=== PATIENT | female | born 1985 | race Caucasian/White ===

== ENCOUNTER 2017-06-16 14:58 | Emergency (ER) | payer OTHER ==
[2017-06-16 17:37] LABS: Bicarbonate 29 mEq/L (21-31); Glucose Level 108 mg/dL (65-120); Potassium 3.8 mEq/L (3.6-5.0); Sodium Level 141 mEq/L (135-145)
[2017-06-16 17:40] LABS: Absolute Lymphocytes (CBC) 3.3 K/uL (0.7-4.9); Absolute Monocytes 0.3 K/uL (0.1-1.3); Absolute Neutrophil 3.3 K/uL (1.8-8.0); Basophils % 0.7 % (0-1.3); Eosinophils % 5.5 % (0-4.4); Hematocrit 40.5 % (36.0-45.0); Lymphocytes % 44.4 % (15.3-44.8); MCH 28.4 pg (27.0-35.0); MCV 85.7 fL (80-100); MPV 9.1 fL (7.6-11.3); Monocytes % 4.7 % (3.3-12.3); RBC Red Blood Cell Count 4.72 M/uL (3.86-4.86)
[2017-06-16 17:43] LABS: ALT/SGPT 19 IU/L (10-60); AST/SGOT 19 IU/L (10-42); Albumin 4.4 g/dL (3.2-5.5); Alkaline Phosphatase 39 IU/L (42-121); BUN Blood Urea Nitrogen 13 mg/dL (6-20); Bilirubin Direct 0.1 mg/dL (0-0.2); Bilirubin Total 0.4 mg/dL (0.3-1.2); Creatine Phosphokinase 44 IU/L (22-269); Protein, Total 7.6 g/dL (6.0-8.3)
[2017-06-16 17:46] LABS: CKMB Creatine Kinase MB 0.5 ng/ml (0.3-4.0)
--- NOTE | 2017-06-16 17:55 | EKG ---
Test Date: 2017-06-16 Test Time: 15:10:50 Auto Mechanic: TC MEASUREMENT RESULTS: Intervals: Rate: 86 MD: 116 QRSD: 80 QT: 340 QTc: 406 Byron: P: 76 MD: 116 QRS: 70 T: 40 INTERPRETIVE STATEMENTS: Normal sinus rhythm Normal ECG No previous ECG available for comparison Electronically Signed On 06-16-17 17:54:30 CDT by Galdino Jackson
[2017-06-16 17:58] LABS: T3 Free 3.89 pg/ml (2.84-4.24)
--- NOTE | 2017-06-16 19:31 | ER ---
Nurse's Notes [facility] Name: Deya Lee Age: 31 yrs Sex: Female : 1985 Arrival Date: 06/16/2017 Time: 15:02 Bed 16 Private MD: Diagnosis: Palpitations Presentation: 06/16 15:07 Presenting complaint: Patient states: i felt really dizzy around 2:30pm, my heart went hj up and im running out of breath; denies chest pain; reports chest tightness;. Transition of care: patient was not received from another setting of care. Onset of symptoms was June 16, 2017. Initial Sepsis Screen: Does the patient meet any 2 criteria? No. Patient's initial sepsis screen is negative. Does the patient have a suspected source of infection? No. Patient's initial sepsis screen is negative. Care prior to arrival: None. 15:07 Method Of Arrival: Ambulatory 15:07 Acuity: EDWARD 3 hj Triage Assessment: 15:09 General: Appears in no apparent distress. uncomfortable, Behavior is calm, cooperative, hj appropriate for age. Pain: Denies pain. 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 - Social history:: Smoking status: Patient/guardian denies using tobacco. Screenin:55 Abuse screen: Denies threats or abuse. Nutritional screening: No deficits noted. em Tuberculosis screening: No symptoms or risk factors identified. Fall Risk None identified. Assessment: 17:04 General: Appears in no apparent distress. comfortable, Behavior is calm, cooperative. em General: Reports 2 episodes of palpitations that lasted 30 minutes each, reports dizziness, denies N/V, symptoms have resolved. Pain: Denies pain. Neuro: Level of Consciousness is awake, alert, obeys commands, Oriented to person, place, time, situation, Gait is steady. Cardiovascular: Capillary refill < 3 seconds Patient's skin is warm and dry. Respiratory: Airway is patent Respiratory effort is even, unlabored, Respiratory pattern is regular, symmetrical, Breath sounds are clear bilaterally. GI: Abdomen is flat. : No signs and/or symptoms were reported regarding the genitourinary system. EENT: No signs and/or symptoms were reported regarding the EENT system. Derm: Skin is intact, Skin is pink, warm \T\ dry. Musculoskeletal: Range of motion: intact in all extremities. 17:15 Reassessment: Patient appears in no apparent distress at this time. I agree with the iw assessment above by Toby Matamoros LVN. 18:15 Reassessment: Patient appears in no apparent distress at this time. Patient and/or em family updated on plan of care and expected duration. Pain level reassessed. Patient is alert, oriented x 3, equal unlabored respirations, skin warm/dry/pink. 19:52 Reassessment: Patient appears in no apparent distress at this time. Patient and/or bs1 family updated on plan of care and expected duration. Pain level reassessed. Patient is alert, oriented x 3, equal unlabored respirations, skin warm/dry/pink. Patient states symptoms have improved. Vital Signs: 15:10 BP 118 / 81; Pulse 88; Resp 18; Temp 98.1(TE); Pulse Ox 99% on R/A; Weight 45.36 kg; hj Height 5 ft. 3 in. (160.02 cm); Pain 0/10; 17:00 BP 138 / 87; Pulse 86; Resp 16; Pulse Ox 100% on R/A; Pain 0/10; em 18:00 BP 117 / 80; Pulse 73; Resp 18; Pulse Ox 100% on R/A; em 18:44 BP 115 / 74; Pulse 69; Resp 18; Pulse Ox 99% on R/A; Pain 0/10; em 19:21 BP 114 / 69; Pulse 69; Resp 16; Pulse Ox 99% on R/A; bs1 19:53 BP 117 / 80; Pulse 69; Resp 16; Temp 97.9(O); Pulse Ox 99% on R/A; Pain 0/10; bs1 15:10 Body Mass Index 17.71 (45.36 kg, 160.02 cm) ED Course: 15:02 Patient arrived in ED. mr 15:09 Triage completed. 15:10 Arm band placed on left wrist. 15:27 EKG done, by residential service technician. reviewed by Alphonso Medina MD. tc 16:38 Roverto Mendoza PA is PHCP. cp 16:38 Obinna Butts MD is Attending Physician. cp 16:46 Toby Matamoros LVN is Primary Nurse. em 16:55 Urine collected: clean catch specimen, clear. em 17:20 No provider procedures requiring assistance completed. Initial lab(s) drawn, by me, em sent to lab. Inserted saline lock: 20 gauge in right antecubital area, using aseptic technique. Blood collected. 17:34 Patient has correct armband on for positive identification. Placed in gown. Bed in low em position. Call light in reach. Side rails up X 1. 18:25 X-ray completed. Portable x-ray completed in exam room. Patient tolerated procedure kc2 well. 19:07 PHCP role handed off by Roverto Mendoza PA jr8 19:07 Mikhail Vazquez PA is PHCP. jr8 19:26 XRAY Chest (1 view) In Process Unspecified. EDCT 19:31 Galdino Jackson MD is Referral Physician. jr8 19:53 IV discontinued, bleeding controlled, No redness/swelling at site. Pressure dressing bs1 applied. Administered Medications: No medications were administered Outcome: 19:31 Discharge ordered by . jr8 19:52 Discharged to home ambulatory. bs1 19:52 Condition: stable 19:52 Discharge instructions given to patient, Instructed on discharge instructions, follow up and referral plans. Demonstrated understanding of instructions, follow-up care. 19:53 Patient left the ED. bs1 Signatures: Dispatcher [employer] EDCT Trena Morocho mr Toby Matamoros LVN CLINICAL TEAM LEAD em Daly Dinero RN RN Mikhail Vazquez PA PA jr8 Bryanna Carlos, deputy attorney general EKG Ttc Sharif Angelo RN RN hj Page, Corey, PA PA cp Carr, Kelsie 2 Marielle Gutierrez, RN RN bs1 Corrections: (The following items were deleted from the chart) 15:13 15:07 Presenting complaint: Patient states: i felt really busy around 2:30pm, my heart hj went up and im running out of breath; denies chest pain; reports chest tightness; hj 15:13 15:10 45.36 kg; Height 5 ft. 3 in.; BMI: 17.7; Pain 0/10; hj hj 15:13 15:10 Pulse 88bpm; Resp 18bpm; Pulse Ox 99% RA; Temp 98.1F Temporal; 45.36 kg; Height 5 hj ft. 3 in.; BMI: 17.7; Pain 0/10; hj
--- NOTE | 2017-06-16 19:32 | EDPHYS ---
Physician Documentation [facility] Name: Deya Lee Age: 31 yrs Sex: Female : 1985 Arrival Date: 06/16/2017 Time: 15:02 Bed 16 Private MD: ED Physician Obinna Butts HPI: 06/16 16:59 This 31 yrs old Female presents to ER via Ambulatory with complaints of cp Palpitations. 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 - Social history:: Smoking status: Patient/guardian denies using tobacco. ROS: 17:05 Constitutional: Negative for body aches, chills, fever, poor PO intake. cp 17:05 Eyes: Negative for injury, pain, redness, and discharge. cp 17:05 ENT: Negative for drainage from ear(s), ear pain, sore throat, difficulty swallowing, cp difficulty handling secretions. 17:05 Cardiovascular: Positive for palpitations, Negative for chest pain, edema. 17:05 Respiratory: Positive for shortness of breath, Negative for cough, wheezing. 17:05 Abdomen/GI: Negative for abdominal pain, nausea, vomiting, and diarrhea, black/tarry stool. 17:05 Back: Negative for pain at rest, pain with movement, radiated pain. 17:05 : Negative for urinary symptoms, vaginal bleeding, vaginal discharge. 17:05 Skin: Negative for cellulitis, rash. 17:05 Neuro: Positive for dizziness, Negative for altered mental status, headache, syncope, weakness. 17:05 All other systems are negative. Exam: 15:20 ECG was reviewed by the Attending Physician. cp 17:12 Constitutional: The patient appears in no acute distress, alert, awake, cp non-diaphoretic, non-toxic, well developed, well nourished. 17:12 Head/Face: Normocephalic, atraumatic. Eyes: Pupils equal round and reactive to light, cp extra-ocular motions intact. Lids and lashes normal. Conjunctiva and sclera are non-icteric and not injected. Cornea within normal limits. Periorbital areas with no swelling, redness, or edema. ENT: Nares patent. No nasal discharge, no septal abnormalities noted. Tympanic membranes are normal and external auditory canals are clear. Oropharynx with no redness, swelling, or masses, exudates, or evidence of obstruction, uvula midline. Mucous membranes moist. Neck: Trachea midline, no thyromegaly or masses palpated, and no cervical lymphadenopathy. Supple, full range of motion without nuchal rigidity, or vertebral point tenderness. No Meningismus. Chest/axilla: Normal chest wall appearance and motion. Nontender with no deformity. No lesions are appreciated. Cardiovascular: Regular rate and rhythm with a normal S1 and S2. No gallops, murmurs, or rubs. Normal PMI, no JVD. No pulse deficits. Respiratory: Lungs have equal breath sounds bilaterally, clear to auscultation and percussion. No rales, rhonchi or wheezes noted. No increased work of breathing, no retractions or nasal flaring. Abdomen/GI: Soft, non-tender, with normal bowel sounds. No distension or tympany. No guarding or rebound. No evidence of tenderness throughout. Back: No spinal tenderness. No costovertebral tenderness. Full range of motion. Skin: Warm, dry with normal turgor. Normal color with no rashes, no lesions, and no evidence of cellulitis. Neuro: Awake and alert, GCS 15, oriented to person, place, time, and situation. Cranial nerves II-XII grossly intact. Motor strength 5/5 in all extremities. Sensory grossly intact. Cerebellar exam normal. Normal gait. Vital Signs: 15:10 BP 118 / 81; Pulse 88; Resp 18; Temp 98.1(TE); Pulse Ox 99% on R/A; Weight 45.36 kg; hj Height 5 ft. 3 in. (160.02 cm); Pain 0/10; 17:00 BP 138 / 87; Pulse 86; Resp 16; Pulse Ox 100% on R/A; Pain 0/10; em 18:00 BP 117 / 80; Pulse 73; Resp 18; Pulse Ox 100% on R/A; em 18:44 BP 115 / 74; Pulse 69; Resp 18; Pulse Ox 99% on R/A; Pain 0/10; em 19:21 BP 114 / 69; Pulse 69; Resp 16; Pulse Ox 99% on R/A; bs1 19:53 BP 117 / 80; Pulse 69; Resp 16; Temp 97.9(O); Pulse Ox 99% on R/A; Pain 0/10; bs1 15:10 Body Mass Index 17.71 (45.36 kg, 160.02 cm) hj MDM: 16:38 Patient medically screened. 19:00 Transition of care: After a detail discussion of the patient's case, care is cp transferred to Mikhail FAYE. 19:30 Data reviewed: vital signs, nurses notes, lab test result(s), EKG, radiologic studies, jr8 plain films, and as a result, I will discharge patient. Data interpreted: Pulse oximetry: on room air is 99 %. Interpretation: normal. Counseling: I had a detailed discussion with the patient and/or guardian regarding: the historical points, exam findings, and any diagnostic results supporting the discharge/admit diagnosis, lab results, radiology results, the need for outpatient follow up, a excel analyst, to return to the emergency department if symptoms worsen or persist or if there are any questions or concerns that arise at home. 06/16 16:59 Order name: Ckmb; Complete Time: 19:29 06/16 16:59 Order name: Basic Metabolic Panel; Complete Time: 19:29 06/16 18:54 Interpretation: Reviewed. 06/16 16:59 Order name: CBC with Diff; Complete Time: 18:05 06/16 18:53 Interpretation: Normal except: EOSINOPHIL % 5.5. 06/16 16:59 Order name: CPK; Complete Time: 19:29 06/16 16:59 Order name: LFT's; Complete Time: 19:29 06/16 16:59 Order name: Magnesium; Complete Time: 19:29 06/16 16:38 Order name: EKG; Complete Time: 16:39 06/16 16:38 Order name: EKG - Nurse/Tech; Complete Time: 16:54 06/16 16:38 Order name: Urine Dipstick-Ancillary (obtain specimen); Complete Time: 16:54 06/16 16:59 Order name: Troponin (emerg Dept Use Only); Complete Time: 18:05 06/16 18:54 Interpretation: Within normal limits: TROPED < 0.03. cp 06/16 16:59 Order name: XRAY Chest (1 view); Complete Time: 19:51 cp 06/16 16:59 Order name: TSH; Complete Time: 19:29 cp 06/16 16:59 Order name: T3 Free; Complete Time: 19:29 cp 06/16 17:04 Order name: Urine --Ancillary (enter results); Complete Time: 18:05 bd 06/16 16:38 Order name: Urine Test (obtain specimen); Complete Time: 16:54 cp 06/16 16:59 Order name: Cardiac monitoring; Complete Time: 17:19 cp 06/16 16:59 Order name: IV Saline Lock; Complete Time: 17:19 cp 06/16 16:59 Order name: Labs collected and sent; Complete Time: 17:19 cp 06/16 16:59 Order name: O2 Per Protocol; Complete Time: 17:19 cp 06/16 16:59 Order name: O2 Sat Monitoring; Complete Time: 17:19 cp EC:20 Rate is 86 beats/min. Rhythm is regular. [place] interval is normal. QRS interval is normal. cp QT interval is normal. T waves are Normal. No ST changes noted. Interpreted by me. Reviewed by me. Administered Medications: No medications were administered Disposition: 06/16/17 19:31 Discharged to Home. Impression: Palpitations. - Condition is Stable. - Discharge Instructions: Palpitations. - Medication Reconciliation Form, Thank You Letter, Antibiotic Education, Prescription Opioid Use form. - Follow up: Galdino Jackson MD; When: 2 - 3 days; Reason: Recheck today's complaints, Continuance of care, Re-evaluation by your physician. - Problem is new. - Symptoms have improved. Addendum: 06/18/2017 20:14 Co-signature as Attending Physician, Obinna Butts MD. r n Signatures: Dispatcher [employer] Angela Schneider Edgar, PASTEURISER OPERATOR PASTEURISER OPERATOR em Obinna Butts MD MD rn Roszak, Josh, PA PA jr8 Sharif Angelo RN Roverto Green PA PA cp Salazar, Brittany RN RN bs1 Corrections: (The following items were deleted from the chart) 06/16 17:20 17:00 Urine Dipstick-Ancillary ordered. bd em 19:53 19:31 06/16/2017 19:31 Discharged to Home. Impression: Palpitations. Condition is bs1 Stable. Forms are Medication Reconciliation Form, Thank You Letter, Antibiotic Education, Prescription Opioid Use. Follow up: Galdino Jackson; When: 2 - 3 days; Reason: Recheck today's complaints, Continuance of care, Re-evaluation by your physician. Problem is new. Symptoms have improved. jr8
--- NOTE | 2017-06-16 19:42 | RAD REPORT ---
EXAM DESCRIPTION: RAD - Chest Single View - 06/16/2017 6:26 pm CLINICAL HISTORY: Palpitations COMPARISON: None. TECHNIQUE: AP portable chest image was obtained 1819 hours . FINDINGS: Lungs are clear. Heart and vasculature are normal. No measurable pleural effusion and no p neumothorax. No acute bone finding. Right convex scoliotic curvature present. No acute aortic finding s suspected. IMPRESSION: No acute cardiopulmonary process.
[2017-06-16 20:51] VITALS: O2SAT 99
[2017-06-16 20:53] VITALS: BP 117/80; TEMP 97.9
== END 2017-06-16 19:53 | disposition home or self-care (01) ==
LOC: ER 14:58
DX: R00.2 Palpitations (principal); R42 Dizziness and giddiness; Z88.0 Allergy status to penicillin; Z88.1 Allergy status to other antibiotic agents
CPT/HCPCS: 36415; 71045; 80048; 80076; 81025; 82550; 82553; 83735; 84443; 84481; 84484; 85025; 93005; 99284